=== PATIENT | female | born 1970 | race Caucasian/White ===

== ENCOUNTER → 2016-11-09 | Outpatient (CLI) | payer OTHER | END | disposition home or self-care (01) | LOC: MA 12:10 | PROC: BH02ZZZ Plain Radiography of Bilateral Breasts (ICD-10-PCS; principal; 2016-11-09) | DX: Z12.31 Encounter for screening mammogram for malignant neoplasm of breast (principal) | CPT/HCPCS: G0202 ==

== ENCOUNTER → 2016-12-26 | Outpatient (CLI) | payer OTHER | END | disposition home or self-care (01) | LOC: US 12-23 11:00 | PROC: BH42ZZZ Ultrasonography of Bilateral Breasts (ICD-10-PCS; principal; 2016-12-26) | DX: R92.2 Inconclusive mammogram (principal) | CPT/HCPCS: 76641 ==

== ENCOUNTER → 2017-10-30 | Outpatient (CLI) | payer OTHER ==
[2017-10-30 11:59] LABS: BASOPHIL % 0.6 % (0-2); PLATELET COUNT 239 x10^3mcL (130-400); RED CELL DISTRIBUTION WIDTH 13.1 % (11.5-14.5)
[2017-10-30 12:20] LABS: ALKALINE PHOSPHATASE 58 U/L (46-116); ALT/SGPT 18 U/L (14-59); AST/SGOT 18 U/L (15-37); CALCIUM 8.9 mg/dL (8.5-10.1); CARBON DIOXIDE 30.6 mmol/L (21-32); CHLORIDE SERUM 105 mmol/L (98-107); CHOLESTEROL 195 mg/dL (<200); CREATININE SERUM 0.9 mg/dL (0.6-1.0); FREE T4 1.04 ng/dL (0.76-1.46); GFR1 > 60 mL/min; GLUCOSE SERUM 85 mg/dL (74-106); POTASSIUM SERUM 4.5 mmol/L (3.5-5.1); SODIUM SERUM 139 mmol/L (136-145); TOTAL PROTEIN, SERUM 7.1 g/dL (6.4-8.2); TRIGLYCERIDES 65 mg/dL (<150)
[2017-10-30 12:24] LABS: CHOLESTEROL/HDL RATIO 2.2; HDL CHOLESTEROL 88 mg/dL (40-60)
== END | disposition home or self-care (01) ==
LOC: LB 11:14
DX: Z00.00 Encounter for general adult medical examination without abnormal findings (principal)
CPT/HCPCS: 84439